=== PATIENT | male | born 1960 | race Hispanic/Latino ===

== ENCOUNTER 2024-02-09 19:20 | Inpatient (IN) | payer BC ==
[~2024-02-09] VITALS: Ht 157.5 cm; Wt 130.3 kg
[~2024-02-09 19:20] MED LIST: AMIT25TA9 PO; ATOR40TA71 PO; DAPA10TA PO; GABA300C PO; LOSA100T59 PO; METF-444 PO; METO200T37 PO
[2024-02-09] MEDS: ASPIRIN 325MG EC TAB PO ONE (19:46)
[2024-02-09] MEDS: NITROGLYCERIN 0.4 MG SL TAB SL PRN (19:46)
[2024-02-09] MEDS ORDERED: HYDR25TA PO (19:55)
[2024-02-09 20:00] LABS: BASOPHILS # (AUTO) 0.06 K/uL (0.00-0.20); BASOPHILS % (AUTO) 0.9 % (0.0-5.0); EOSINOPHILS # (AUTO) 0.33 K/uL (0.00-0.70); EOSINOPHILS % (AUTO) 5.2 % (0.0-8.0); HEMATOCRIT 41.6 % (42-54); IMMATURE GRANULOCYTE ABSOLUTE 0.02 K/uL (0-1); LYMPHOCYTES # (AUTO) 1.4 K/uL (1.0-4.8); LYMPHOCYTES % (AUTO) 22.3 % (21.0-51.0); MEAN CORPUSCULAR HEMOGLOBIN 27.7 pg (27.0-33.0); MEAN CORPUSCULAR HGB CONC 33.2 g/dL (32.0-36.0); MEAN CORPUSCULAR VOLUME 83.5 fL (79-99); MONOCYTES # (AUTO) 0.5 K/uL (0.1-1.0); MONOCYTES % (AUTO) 7.7 % (3.0-13.0); NEUTROPHILS # (AUTO) 4.1 K/uL (1.8-7.7); NEUTROPHILS % (AUTO) 63.6 % (40.0-77.0); PLATELET COUNT (AUTO) 224 K/uL (130-400); RED BLOOD CELL COUNT(AUTO) 4.98 MIL/uL (4.50-6.20); RED CELL DISTRIBUTION WIDTH 13.1 % (11.0-15.5); WHITE BLOOD COUNT (AUTO) 6.4 K/uL (4.8-10.8)
[2024-02-09] MEDS ORDERED: INSLAN SQ (20:05)
[2024-02-09 20:10] LABS: CREATININE 1.8 mg/dL (0.5-1.3); POTASSIUM 4.3 mmol/L (3.5-5.1)
[2024-02-09 20:12] LABS: PROTHROMBIN TIME 10.8 SEC (9.6-11.6)
[2024-02-09 20:13] LABS: PARTIAL THROMBOPLASTIN TIME 29.3 SEC (26.3-35.5)
[2024-02-09 20:14] LABS: MAGNESIUM 1.4 mg/dL (1.80-2.40)
[2024-02-09 20:20] LABS: B-TYPE NATRIURETIC PEPTIDE 13 pg/mL (0-100)
[2024-02-09] MEDS: 0.9%NACL 1000ML 1,000 ML IV ONE (21:11)
[2024-02-09] MEDS: PANTOPrazole 40 MG/VIAL IVP ONE (21:11)
[2024-02-10] MEDS ORDERED: PoTASSium chl 10% ELIXIR 20MEQ 20 MEQ/15 ML UDCUP PO PRN (01:00)
[2024-02-10] MEDS ORDERED: GLUCAGON 1MG KIT 1 MG ML IM PRN (01:00)
[2024-02-10] MEDS ORDERED: PoTASSium chloRIDE 20MEQ ER 20 MEQ ERTAB PO PRN (01:00)
[2024-02-10] MEDS ORDERED: PoTASSium chloRIDE 20MEQ/100ML 100 ML IV PRN (01:00)
[2024-02-10] MEDS ORDERED: NITROGLYCERIN 0.4 MG SL TAB SL PRN (01:00)
[2024-02-10] MEDS ORDERED: DEXTROSE 50%-WATER 50 ML DISP.SYRIN IV PRN (01:00)
[2024-02-10] MEDS: 0.9%NACL 1000ML 1,000 ML IV SCH (01:03)
[2024-02-10] MEDS: MAGNESIUM 2GM PREMIX 50ML 50 ML IV PRN (01:03)
[2024-02-10 01:33] LABS: ADD UA MICROSCOPIC YES; APPEARANCE,URINE CLEAR (CLEAR); BILIRUBIN,URINE NEGATIVE (NEGATIVE); COLOR,URINE LIGHT-YELLOW (YELLOW); GLUCOSE, URINE (UA) >=1000 mg/dL (NEGATIVE); KETONES,URINE NEGATIVE (NEGATIVE); LEUKOCYTE ESTERASE ,URINE NEGATIVE Leu/uL (NEGATIVE); NITRATE,URINE NEGATIVE (NEGATIVE); PROTEIN,URINE 10 mg/dL (NEGATIVE); UROBILINOGEN,URINE 0.2 mg/dL (0.2-1.0)
[2024-02-10 01:35] LABS: BACTERIA,URINE RARE /HPF (None Seen); WBC,URINE 0-1 /HPF (0-1)
[2024-02-10 03:35] VITALS: BP_SYST 113; BP_SYST 153; BP_DIAS 64; BP_DIAS 79; PULSE 64; PULSE 82; RESP 18; TEMP 97.9; TEMP 98.6
[2024-02-10 05:38] LABS: BASOPHILS # (AUTO) 0.05 K/uL (0.00-0.20); BASOPHILS % (AUTO) 0.8 % (0.0-5.0); EOSINOPHILS % (AUTO) 6.4 % (0.0-8.0); HEMATOCRIT 37.5 % (42-54); IMMATURE GRANULOCYTE ABSOLUTE 0.02 K/uL (0-1); LYMPHOCYTES # (AUTO) 1.7 K/uL (1.0-4.8); LYMPHOCYTES % (AUTO) 27.2 % (21.0-51.0); MEAN CORPUSCULAR HEMOGLOBIN 27.4 pg (27.0-33.0); MEAN CORPUSCULAR HGB CONC 32.8 g/dL (32.0-36.0); MEAN CORPUSCULAR VOLUME 83.5 fL (79-99); MONOCYTES # (AUTO) 0.6 K/uL (0.1-1.0); NEUTROPHILS # (AUTO) 3.5 K/uL (1.8-7.7); NEUTROPHILS % (AUTO) 56.3 % (40.0-77.0); PLATELET COUNT (AUTO) 196 K/uL (130-400); RED BLOOD CELL COUNT(AUTO) 4.49 MIL/uL (4.50-6.20); RED CELL DISTRIBUTION WIDTH 12.9 % (11.0-15.5); WHITE BLOOD COUNT (AUTO) 6.3 K/uL (4.8-10.8)
[2024-02-10 06:12] LABS: BILIRUBIN,TOTAL 0.4 mg/dL (0.2-1.0); CREATININE 1.5 mg/dL (0.5-1.3); POTASSIUM 4.2 mmol/L (3.5-5.1); TOTAL PROTEIN, SERUM 6.5 g/dL (6.0-8.3)
[2024-02-10 07:53] VITALS: BP 164/78; PULSE 58; RESP 18; TEMP 98.1
[2024-02-10 08:00] VITALS: O2SAT 96
[2024-02-10] MEDS: ASPIRIN 81 MG EC TAB PO SCH (08:30)
[2024-02-10] MEDS: FAMOTIDINE 20MG TAB PO SCH (08:30)
[2024-02-10] MEDS: INSULIN humuLIN R 100 UNIT/ML 3ML SQ SCH (08:39)
[2024-02-10 11:32] VITALS: BP 147/78; PULSE 54; RESP 18; TEMP 98.2
[2024-02-10] MEDS: LoSARTan 100 MG TABLET PO SCH (12:33)
[2024-02-10] MEDS: hydroCHLOROthiazide 25 MG TABLET PO SCH (12:33)
[2024-02-10] MEDS ORDERED: PHARMACY COMMUNICATION 1 EACH EACH MISC SCH (13:00)
[2024-02-10] MEDS ORDERED: atorVAStatin 40 MG TABLET PO SCH (21:00)
[2024-02-11] MEDS ORDERED: metOPROLol sucCINATE 50 MG TAB.SR.24H PO SCH (09:00)
== END 2024-02-10 17:15 | disposition home or self-care (01) | DRG 392 ==
LOC: EDH 19:20 → EDHIP 02-10 00:45 → 4CH 02-10 02:37
PROVIDERS: ADMIT Hospitalist; ATTEND Hospitalist
DX: K21.9 Gastro-esophageal reflux disease without esophagitis (principal); I20.0 Unstable angina; I13.0 Hypertensive heart and chronic kidney disease with heart failure and stage 1 through stage 4 chronic kidney disease, or unspecified chronic kidney disease; Z68.43 Body mass index [BMI] 50.0-59.9, adult; E66.01 Morbid (severe) obesity due to excess calories; E11.22 Type 2 diabetes mellitus with diabetic chronic kidney disease; E11.42 Type 2 diabetes mellitus with diabetic polyneuropathy; N18.9 Chronic kidney disease, unspecified; E78.00 Pure hypercholesterolemia, unspecified; I50.9 Heart failure, unspecified; Z89.511 Acquired absence of right leg below knee; Z89.512 Acquired absence of left leg below knee; Z83.3 Family history of diabetes mellitus; Z82.49 Family history of ischemic heart disease and other diseases of the circulatory system; Z82.3 Family history of stroke; Z82.0 Family history of epilepsy and other diseases of the nervous system; Z85.038 Personal history of other malignant neoplasm of large intestine; Z86.73 Personal history of transient ischemic attack (TIA), and cerebral infarction without residual deficits; G62.9 Polyneuropathy, unspecified
CPT/HCPCS: 36415; 71045; 80048; 80053; 81001; 82550; 82948; 83735; 83880; 84484; 85025; 85610; 85730; 93005; G0378; J1815; J2470; J3475; J7030

== ENCOUNTER → 2024-12-07 | Outpatient (CLI) | payer OTHER, MEDICARE ==
[~2024-12-07] MED LIST changes: +AMIT25TA21 PO; -AMIT25TA9 PO; +HYDR25TA PO; +INSLAN SQ
--- NOTE | 2024-12-08 12:33 | HMCIMG ---
EXAM: MR Left Shoulder WITHOUT CONTRAST CLINICAL HISTORY: 64 year old male, pain in left shoulder TECHNIQUE: Multiplanar multisequence magnetic resonance images were obtained WITHOUT contrast. CONTRAST: None COMPARISON: None FINDINGS: JOINTS: Moderate acromioclavicular joint degenerative changes are present with temporal hypertrophic portion of the superior. BONE: No acute fracture or focal osseous lesion. SOFT TISSUES: There is moderate tendinopathy of the supraspinatus and subscapularis. There is mild bursitis of the supraspinatus, and infraspinatus. There is a ganglion cyst formation along the muscle fibers of the subscapularis. IMPRESSION: 1. Moderate tendinopathy of the supraspinatus and subscapularis with mild bursitis of the supraspinatus and infraspinatus. 2. Ganglion cyst formation along the muscle fibers of the subscapularis. 3. Moderate acromioclavicular joint degenerative changes with temporal hypertrophic portion of the superior. /[place]
== END | disposition home or self-care (01) ==
LOC: RAH 13:47
PROVIDERS: ATTEND Family Medicine
DX: M19.012 Primary osteoarthritis, left shoulder (principal); M67.814 Other specified disorders of tendon, left shoulder; M75.52 Bursitis of left shoulder; M67.412 Ganglion, left shoulder; M25.512 Pain in left shoulder
CPT/HCPCS: 73221